=== PATIENT | male | born 1970 | race Caucasian/White ===

== ENCOUNTER 2017-11-26 07:54 | Observation (INO) | payer OTHER ==
--- OUTSIDE RECORDS SUMMARY | 2017-11-26 07:57 | XMS REPORT | Continuity of Care Document ---
:1970 Author Organization [facility] Care Team Providers Name Role Phone MD Carlos, Gerald Unavailable Unavailable Insurance Providers Payer name Policy type / Policy ID Covered green party ID Policy Mariano Coverage type AETNA - CHOICE (POS II) AETNA - CHOICE (POS II) AETNA - CHOICE (POS II) CIGNA INTERNATIONAL (PPO) AETNA - CHOICE (POS II) CIGNA INTERNATIONAL (PPO) AETNA - CHOICE (POS II) AETNA - CHOICE (POS II) AETNA - CHOICE (POS II) AETNA - CHOICE (POS II) AETNA - CHOICE (POS II) AETNA - CHOICE (POS II) AETNA - CHOICE (POS II) Encounters Encounter Performer Location Date Lab Report Gerald Gonzalez MD [facility] [place] Sep Problems Problem Effective Dates Problem Status HTN Active GERD Active HYPERCHOLESTEROLEMIA Active BIPOLAR DISORDER Active GENERALIZED ANXIETY DISORDER Active INSOMNIA Dec 03, 2012 Active Procedures Date Description Comments Dec 03, 2012 smoking status never smoker Sep 27, 2013 smoking status Never smoker Medications Medication Instructions Start Date Status PRILOSEC 40 MG CPDR Take 1 po daily Dec 03, 2012 Active LAMICTAL 200 MG TABS take 1 po daily Dec 03, 2012 Active EXFORGE 5-320 MG TABS Take 1 po daily Dec 03, 2012 Active AMBIEN 10 MG TABS 1 PO at bedtime PRN insomnia Dec 03, 2012 Active ATORVASTATIN CALCIUM 20 MG TABS 1 tablet daily Dec 03, 2012 Active Vital Signs Date Description Test Result Dec 03, 2012 weight E&M WEIGHT 300 lb Dec 03, 2012 height E&M HEIGHT 70 in Dec 03, 2012 temperature E&M TEMPERATURE 98.4 deg f Dec 03, 2012 blood pressure, systolic BP SYSTOLIC 143 mm Hg Dec 03, 2012 blood pressure, diastolic BP DIASTOLIC 65 mm Hg Dec 03, 2012 pulse rate E&M PULSE RATE 79 /min Sep 27, 2013 weight E&M WEIGHT 300.5 lb Sep 27, 2013 temperature E&M TEMPERATURE 98.4 deg f Sep 27, 2013 respiratory rate E&M RESP RATE 14 /min Sep 27, 2013 pulse rate E&M PULSE RATE 68 /min Sep 27, 2013 blood pressure, systolic BP SYSTOLIC 120 mm Hg Sep 27, 2013 blood pressure, diastolic BP DIASTOLIC 72 mm Hg Results Date Description Test Name Value Reference Interpretation Status Sep 27, hemoglobin, blood HGB 14.8 g/dL 14.0-18.0 2013Sep 27, hematocrit, blood HCT 43.4 % 42.0-54.0 2013Sep 27, platelet count PLATELETS 275 K/CMM 439-954 3115 /mm3 Sep 27, hemoglobin, blood HGB 14.8 g/dL 14.0-18.0 2013Sep 27, hematocrit, blood HCT 43.4 % 42.0-54.0 2013Sep 27, platelet count PLATELETS 275 K/CMM 984-127 1167 /mm3 Sep 27, hemoglobin, blood HGB 14.8 g/dL 14.0-18.0 2013Sep 27, hematocrit, blood HCT 43.4 % 42.0-54.0 2013Sep 27, platelet count PLATELETS 275 K/CMM 889-480 3109 /mm3 Sep 27, cholesterol, serum CHOLESTEROL 144 mg/dl <=199 2013Sep 27, triglyceride, serum, TRIGLYCERIDE 293 mg/dl <=149 High 2013 fasting Sep 27, HDL cholesterol, HDL 34 mg/dl >=61 Low 2013 serum Sep 27, sodium, serum SODIUM 140 MEQ/L [phone] mmol/L Sep 27, potassium, serum POTASSIUM 3.7 MEQ/L 3.5-5.1 2013 mmol/L Sep 27, creatinine, serum CREATININE 1.0 mg/dL 0.5-1.4 2013Sep 27, urea nitrogen, blood BUN 13 mg/dL 7-22 2013Sep 27, urea BUN/CREAT 13 null 6-25 2013 nitrogen/creatinine ratio, serum Sep 27, albumin, serum ALBUMIN 4.1 g/dL 3.5-5.0 2013Sep 27, calcium, serum CALCIUM 8.9 mg/dL 8.5-10.5 2013Sep 27, alanine SGPT (ALT) 53 U/L 0-65 2013 aminotransferase (SGPT), serum Sep 27, aspartate SGOT (AST) 33 U/L 0-37 2013 aminotransferase (SGOT), serum Sep 27, alkaline ALK PHOS 69 U/L 39-136 2013 phosphatase, serum Sep 27, thyroid stimulating TSH 0.859 0.360-3.740 2013 hormone, serum uIU/mL Sep 27, cholesterol, serum CHOLESTEROL 144 mg/dl <=199 2013Sep 27, triglyceride, serum, TRIGLYCERIDE 293 mg/dl <=149 High 2013 fasting Sep 27, HDL cholesterol, HDL 34 mg/dl >=61 Low 2013 serum Sep 27, LDL cholesterol, LDL 51 mg/dl <=99 2013Sep 27, sodium, serum SODIUM 140 MEQ/L [phone] mmol/L Sep 27, potassium, serum POTASSIUM 3.7 MEQ/L 3.5-5.1 2013 mmol/L Sep 27, creatinine, serum CREATININE 1.0 mg/dL 0.5-1.4 2013Sep 27, urea nitrogen, blood BUN 13 mg/dL 10-11Sep 27, urea BUN/CREAT 13 null -2013 nitrogen/creatinine ratio, serum Sep 27, albumin, serum ALBUMIN 4.1 g/dL 3.5-5.0 2013Sep 27, calcium, serum CALCIUM 8.9 mg/dL 8.5-10.5 2013Sep 27, alanine SGPT (ALT) 53 U/L 0-65 2013 aminotransferase (SGPT), serum Sep 27, aspartate SGOT (AST) 33 U/L 0-37 2013 aminotransferase (SGOT), serum Sep 27, alkaline ALK PHOS 69 U/L 39-136 2013 phosphatase, serum Sep 27, thyroid stimulating TSH 0.859 0.360-3.740 2013 hormone, serum uIU/mL Sep 27, cholesterol, serum CHOLESTEROL 144 mg/dl <=199 2013Sep 27, triglyceride, serum, TRIGLYCERIDE 293 mg/dl <=149 High 2013 fasting Sep 27, HDL cholesterol, HDL 34 mg/dl >=61 Low 2013Sep 27, LDL cholesterol, LDL 51 mg/dl <=99 2013Sep 27, sodium, serum SODIUM 140 MEQ/L [phone] mmol/L Sep 27, potassium, serum POTASSIUM 3.7 MEQ/L 3.5-5.1 2013 mmol/L Sep 27, creatinine, serum CREATININE 1.0 mg/dL 0.5-1.4 2013Sep 27, urea nitrogen, blood BUN 13 mg/dL 10-11Sep 27, urea BUN/CREAT 13 null 6-25 2013 nitrogen/creatinine ratio, serum Sep 27, albumin, serum ALBUMIN 4.1 g/dL 3.5-5.0 2013Sep 27, calcium, serum CALCIUM 8.9 mg/dL 8.5-10.5 2013Sep 27, alanine SGPT (ALT) 53 U/L 0-65 2013 aminotransferase (SGPT), serum Sep 27, aspartate SGOT (AST) 33 U/L 0-37 2013 aminotransferase (SGOT), serum Sep 27, alkaline ALK PHOS 69 U/L 39-136 2013 phosphatase, serum Sep 27, thyroid stimulating TSH 0.859 0.360-3.740 2013 hormone, serum uIU/mL
--- OUTSIDE RECORDS SUMMARY | 2017-11-26 07:57 | XMS REPORT | Continuity of Care Document ---
:1970 Author Organization [facility] Care Team Providers Name Role Phone MD Carlos, Gerald Unavailable Unavailable Insurance Providers Payer name Policy type / Policy ID Covered libertarian ID Policy Mariano Coverage type AETNA - [...] (POS II) Encounters Encounter Performer Location Date Office Visit Gerald Gonzalez MD [facility] [place] Sep 27, 2013 Problems Problem Effective Dates Problem Status HTN [...]
--- OUTSIDE RECORDS SUMMARY | 2017-11-26 07:57 | XMS REPORT | Continuity of Care Document ---
:1970 Author Organization Interface Problems Problem Status Onset Classification Date Comments Source Date Reported IMPAIRED GLUCOSE Active Condition 10/06/2014 TOLERANCE TEST 015 Medical Group INSOMNIA Active Condition 10/06/2014 013 Medical Group Insomnia<sup>5</sup> Active Problem 08/17/2017 Data 013 migrated Medical from [facility] on 08/19/14. HTN Active Condition 10/06/2014 Medical Group GERD Active Condition 10/06/2014 Medical Group HYPERCHOLESTEROLEMIA Active Condition 10/06/2014 Medical Group BIPOLAR DISORDER Active Condition 10/06/2014 Medical Group GENERALIZED ANXIETY Active Condition 10/06/2014 DISORDER Medical Group Benign Active Problem 08/17/2017 Data hypertension<sup>1</sup migrated Medical > from [facility] on 08/19/14. Bipolar Active Problem 08/17/2017 Data disorder<sup>2</sup> migrated Medical from [facility] on 08/19/14. Gastroesophageal reflux Active Problem 08/17/2017 Data disease<sup>3</sup> migrated Medical from [facility] on 08/19/14. Generalized anxiety Active Problem 08/17/2017 Data disorder<sup>4</sup> migrated Medical from [facility] on 08/19/14. Impaired glucose Active Problem 08/17/2017 tolerance Medical Group Morbid obesity Active Problem 08/17/2017 Medical Group Medications Medication Details Route Status Patient Ordering Order Source Instructions Provider Date pravastatin 40 40 mg=1 Active MH mg oral tablet tab, PO, 018 Medical Bedtime, # Group 90 tab, 1 Refill(s), [facility]: [id number] Omeprazole 40 40 mg=1 Active MH MG Enteric cap, PO, 018 Medical Coated Capsule Daily, # 90 Group [Prilosec] cap, 1 Refill(s), Pharmacy: [id number] Amlodipine 5 MG 1 tab, PO, Active MH / valsartan 320 Daily, # 90 018 Medical MG Oral Tablet tab, 1 Group [Exforge 5/320] Refill(s), Pharmacy: [id number] PRILOSEC 40 MG Take 1 po Active MH CPDR daily 013 Medical Group LAMICTAL 200 MG take 1 po Active MH TABS daily 013 Medical Group EXFORGE 5-320 Take 1 po Active MH MG TABS daily 013 Medical Group AMBIEN 10 MG 1 PO at Active MH TABS bedtime PRN 013 Medical insomnia Group ATORVASTATIN 1 tablet Active MH CALCIUM 20 MG daily 013 Medical TABS Group PRILOSEC 40 MG Take 1 po Active MH CPDR daily 013 Medical Group ATORVASTATIN 1 tablet Active MH CALCIUM 20 MG daily 013 Medical TABS Group AMBIEN 10 MG 1 PO at No Longer MH TABS bedtime PRN Active 013 Medical insomnia Group Allergies, Adverse Reactions, Alerts Substance Category Reaction Severity Reaction Status Date Comments Source type Reported NKDA<sup>1< Assertion Drug Active Data MH /sup> allergy 4 migrated Medical from [facility] on 05/15/15. Originally documented as NKA. Immunizations Immunization Date Given Site Status Last Updated Comments Source Results Order Name Results Value Reference Date Interpretation Comments Source Range Chemistry HGBA1C 6.0 % - 5.6 2014 Medical Group Chemistry CHOLESTEROL 142 - 199 mg/dl 2014 Medical Group Chemistry TRIGLYCERIDE 221 - 149 mg/dl 2014 Medical Group Chemistry HDL 33 >=61 10/03/ mg/dl 2014 Medical Group Chemistry LDL 65 - 99 mg/dl 2014 Medical Group Chemistry SODIUM 141 135 - 145 MEQ/L 2014 Medical mmol/L Group Chemistry POTASSIUM 3.6 3.5 - 5.1 MEQ/L 2014 Medical mmol/L Group Chemistry CREATININE 1.0 0.5 - 1.4 mg/dL 2014 Medical Group Chemistry BUN 10 7 - 22 mg/dL 2014 Medical Group Chemistry BUN/CREAT 10 6 - 25 2014 Medical Group Chemistry ALBUMIN 4.0 3.5 - 5.0 g/dL 2014 Medical Group Chemistry CALCIUM 9.1 8.5 - 10.5 mg/dL 2014 Medical Group Chemistry SGPT (ALT) 67 U/L 0 - 65 2014 Medical Group Chemistry SGOT (AST) 37 U/L 0 - 37 2014 Medical Group Chemistry ALK PHOS 83 U/L 39 - 136 2014 Medical Group Hematology HGB 14.4 14.0 - 18.0 g/dL 2014 Medical Group Hematology HCT 43.9 % 42.0 - 54.0 2014 Medical Group Hematology PLATELETS 213 133 - 450 K/CMM 2014 Medical /mm3 Group Chemistry CHOLESTEROL 144 - 199 mg/dl 2013 Medical Group Chemistry TRIGLYCERIDE 293 - 149 mg/dl 2013 Medical Group Chemistry HDL 34 >=61 mg/dl 2013 Medical Group Chemistry SODIUM 140 135 - 145 MEQ/L 2013 Medical mmol/L Group Chemistry POTASSIUM 3.7 3.5 - 5.1 MEQ/L 2013 Medical mmol/L Group Chemistry CREATININE 1.0 0.5 - 1.4 mg/dL 2013 Medical Group Chemistry BUN 13 7 - 22 mg/dL 2013 Medical Group Chemistry BUN/CREAT 13 6 - 25 2013 Medical Group Chemistry ALBUMIN 4.1 3.5 - 5.0 g/dL 2013 Medical Group Chemistry CALCIUM 8.9 8.5 - 10.5 mg/dL 2013 Medical Group Chemistry SGPT (ALT) 53 U/L 0 - 65 2013 Medical Group Chemistry SGOT (AST) 33 U/L 0 - 37 2013 Medical Group Chemistry ALK PHOS 69 U/L 39 - 136 2013 Medical Group Chemistry TSH 0.859 0.360 - uIU/mL 3.740 2013 Medical Group Chemistry CHOLESTEROL 144 - 199 mg/dl 2013 Medical Group Chemistry TRIGLYCERIDE 293 - 149 mg/dl 2013 Medical Group Chemistry HDL 34 >=61 mg/dl 2013 Medical Group Chemistry LDL 51 - 99 mg/dl 2013 Medical Group Chemistry SODIUM 140 135 - 145 MEQ/L 2013 Medical mmol/L Group Chemistry POTASSIUM 3.7 3.5 - 5.1 MEQ/L 2013 Medical mmol/L Group Chemistry CREATININE 1.0 0.5 - 1.4 mg/dL 2013 Medical Group Chemistry BUN 13 7 - 22 mg/dL 2013 Medical Group Chemistry BUN/CREAT 13 6 - 25 2013 Medical Group Chemistry ALBUMIN 4.1 3.5 - 5.0 g/dL 2013 Medical Group Chemistry CALCIUM 8.9 8.5 - 10.5 mg/dL 2013 Medical Group Chemistry SGPT (ALT) 53 U/L 0 - 65 2013 Medical Group Chemistry SGOT (AST) 33 U/L 0 - 37 2013 Medical Group Chemistry ALK PHOS 69 U/L 39 - 136 2013 Medical Group Chemistry TSH 0.859 0.360 - uIU/mL 3.740 2013 Medical Group Chemistry CHOLESTEROL 144 - 199 mg/dl 2013 Medical Group Chemistry TRIGLYCERIDE 293 - 149 mg/dl 2013 Medical Group Chemistry HDL 34 >=61 mg/dl 2013 Medical Group Chemistry LDL 51 - 99 mg/dl 2013 Medical Group Chemistry SODIUM 140 135 - 145 MEQ/L 2013 Medical mmol/L Group Chemistry POTASSIUM 3.7 3.5 - 5.1 MEQ/L 2013 Medical mmol/L Group Chemistry CREATININE 1.0 0.5 - 1.4 mg/dL 2013 Medical Group Chemistry BUN 13 7 - 22 mg/dL 2013 Medical Group Chemistry BUN/CREAT 13 6 - 25 2013 Medical Group Chemistry ALBUMIN 4.1 3.5 - 5.0 g/dL 2013 Medical Group Chemistry CALCIUM 8.9 8.5 - 10.5 mg/dL 2013 Medical Group Chemistry SGPT (ALT) 53 U/L 0 - 65 2013 Medical Group Chemistry SGOT (AST) 33 U/L 0 - 37 2013 Medical Group Chemistry ALK PHOS 69 U/L 39 - 136 2013 Medical Group Chemistry TSH 0.859 0.360 - uIU/mL 3.740 2013 Medical Group Chemistry CHOLESTEROL 144 - 199 mg/dl 2013 Medical Group Chemistry TRIGLYCERIDE 293 - 149 mg/dl 2013 Medical Group Chemistry HDL 34 >=61 mg/dl 2013 Medical Group Hematology HGB 14.8 14.0 - 18.0 g/dL 2013 Medical Group Hematology HCT 43.4 % 42.0 - 54.0 2013 Medical Group Hematology PLATELETS 275 133 - 450 [facility] 2013 Medical /mm3 Group Hematology HGB 14.8 14.0 - 18.0 g/dL 2013 Medical Group Hematology HCT 43.4 % 42.0 - 54.0 2013 Medical Group Hematology PLATELETS 275 133 - 450 [facility] 2013 Medical /mm3 Group Hematology HGB 14.8 14.0 - 18.0 g/dL 2013 Medical Group Hematology HCT 43.4 % 42.0 - 54.0 2013 Medical Group Hematology PLATELETS 275 133 - 450 [facility] 2013 Medical /mm3 Group Vital Signs Vital Sign Value Date Comments Source BMI Calculated 44.66 05/11/2017 Medical Group Weight 137.182 05/11/2017 Medical Group Height 175.26 cm 05/11/2017 Medical Group Heart Rate 76 05/11/2017 Medical Group Temperature Oral (F) 97.9 F 05/11/2017 Medical Group Systolic (mm Hg) 112 05/11/2017 Medical Group Diastolic (mm Hg) 80 05/11/2017 Medical Group Height 70 10/06/2014 Medical Group Weight 306 10/06/2014 Medical Group Height 70 10/03/2014 Medical Group Weight 306 10/03/2014 Medical Group Temperature Oral (F) 97.6 F 10/03/2014 Medical Group Respitory Rate 16 10/03/2014 Medical Group Heart Rate 80 10/03/2014 Medical Group Systolic (mm Hg) 122 10/03/2014 Medical Group Diastolic (mm Hg) 68 10/03/2014 Medical Group Weight 300.5 09/27/2013 Medical Group Temperature Oral (F) 98.4 F 09/27/2013 Medical Group Respitory Rate 14 09/27/2013 Medical Group Heart Rate 68 09/27/2013 Medical Group Systolic (mm Hg) 120 09/27/2013 Medical Group Diastolic (mm Hg) 72 09/27/2013 Medical Group Weight 300 12/03/2012 Medical Group Height 70 12/03/2012 Medical Group Temperature Oral (F) 98.4 F 12/03/2012 Medical Group Systolic (mm Hg) 143 12/03/2012 Medical Group Diastolic (mm Hg) 65 12/03/2012 Medical Group Heart Rate 79 12/03/2012 Medical Group Encounters Location Location Encounter Encounter Reason Attending ADM DC Status Source Details Type Number For Provider Date Date Visit [facility] [id number] Gerald 09/27 09/27 [place] Visit 020 k, /2013 Medical Medical MD Group Group [facility] Lab Report [id number] Gerald 09/27 09/27 [facility] [address], /2013 Medical Medical MD Group Group [facility] Office [id number] Gerald 10/03 10/03 formerly [facility] Visit 980 k, /2014 Medical Medical MD Group Group [facility] Lab Report [id number] Gerald 10/03 10/03 [facility] [address], Medical Medical MD Group Group [facility] Lab Report [id number] Gerald 10/06 10/06 [facility] [address], /2014 Medical Medical MD Group Group [place] Outpatient [id number] GERALD 10/06 [facility] [place] Outpatient [id number] GERALD 05/27 [facility] Outpatient [id number] GERALD 06/02 [facility] Outside [id number] 04/30 05/02 Primary Medical /2017 [facility] [place] Out[facility] [id number] GERALD 05/11 [facility] [place] [facility] Outpatient [id number] Gerald 05/11 05/12 Primary /2017 Medical Care Group [facility] Outside [id number] 07/03 07/05 Primary Medical /2017 [facility] [place] Outpatient [id number] GERALD 10/29 [facility] [place] Procedures Procedure Code Date Perfomer Comments Source Colonoscopy [id number] 06/26/2017 Medical Group Colonoscopy [id number] 04/21/2017 Medical Group Adenoidectomy [id number] Medical Group Bilateral tubal [id number] Medical ligation Group Excision of basal [id number] Medical cell carcinoma Group Excision of [id number] Medical melanoma Group
--- OUTSIDE RECORDS SUMMARY | 2017-11-26 07:58 | XMS REPORT | Continuity of Care Document ---
:1970 Author Organization [facility] Care Team Providers Name Role Phone MD Carlos, Gerald Unavailable Unavailable Insurance Providers Payer name Policy type / Policy ID Covered constitution party ID Policy Mariano Coverage type AETNA [...] Location Date Lab Report Gerald Gonzalez MD [facility] [place] Sep Problems Problem Effective Dates Problem Status HTN Active GERD Active HYPERCHOLESTEROLEMIA Active BIPOLAR DISORDER Active GENERALIZED ANXIETY DISORDER Active INSOMNIA Dec 03, 2012 Active IMPAIRED GLUCOSE TOLERANCE TEST (ORAL) Oct 06, 2014 Active Procedures Date Description Comments Dec 03, 2012 smoking status never smoker Sep 27, 2013 smoking status Never smoker Oct 03, 2014 smoking status Never smoker Medications Medication Instructions Start Date Status PRILOSEC 40 MG CPDR Take 1 po daily Dec 03, 2012 Active LAMICTAL 200 MG TABS take 1 po daily Dec 03, 2012 Active EXFORGE 5-320 MG TABS Take 1 po daily Dec 03, 2012 Active ATORVASTATIN CALCIUM 20 MG TABS 1 tablet daily Dec 03, 2012 Active AMBIEN 10 MG TABS 1 PO at bedtime PRN insomnia Dec 03, 2012 Inactive Vital Signs Date Description Test Result Dec 03, 2012 weight E&M - 3141-9 WEIGHT 300 lb Dec 03, 2012 height E&M - 8302-2 HEIGHT 70 in Dec 03, 2012 temperature E&M TEMPERATURE 98.4 deg f Dec 03, 2012 blood pressure, systolic - 8480-6 BP SYSTOLIC 143 mm Hg Dec 03, 2012 blood pressure, diastolic - 8462-4 BP DIASTOLIC 65 mm Hg Dec 03, 2012 pulse rate E&M - 8867-4 PULSE RATE 79 /min Sep 27, 2013 weight E&M - 3141-9 WEIGHT 300.5 lb Sep 27, 2013 temperature E&M TEMPERATURE 98.4 deg f Sep 27, 2013 respiratory rate E&M - 9279-1 RESP RATE 14 /min Sep 27, 2013 pulse rate E&M - 8867-4 PULSE RATE 68 /min Sep 27, 2013 blood pressure, systolic - 8480-6 BP SYSTOLIC 120 mm Hg Sep 27, 2013 blood pressure, diastolic - 8462-4 BP DIASTOLIC 72 mm Hg Oct 03, 2014 height E&M - 8302-2 HEIGHT 70 in Oct 03, 2014 weight E&M - 3141-9 WEIGHT 306 lb Oct 03, 2014 temperature E&M TEMPERATURE 97.6 deg f Oct 03, 2014 respiratory rate E&M - 9279-1 RESP RATE 16 /min Oct 03, 2014 pulse rate E&M - 8867-4 PULSE RATE 80 /min Oct 03, 2014 blood pressure, systolic - 8480-6 BP SYSTOLIC 122 mm Hg Oct 03, 2014 blood pressure, diastolic - 8462-4 BP DIASTOLIC 68 mm Hg Oct 06, 2014 height E&M - 8302-2 HEIGHT 70 in Oct 06, 2014 weight E&M - 3141-9 WEIGHT 306 lb Results Date Description Test Name Value Reference Interpretation Status Sep 27, hemoglobin, blood HGB 14.8 g/dL 14.0-18.0 2013Sep 27, hematocrit, blood HCT 43.4 % 42.0-54.0 2013Sep 27, platelet count PLATELETS 275 K/CMM 239-866 8100 /mm3 Sep 27, hemoglobin, blood HGB 14.8 g/dL 14.0-18.0 2013Sep 27, hematocrit, blood HCT 43.4 % 42.0-54.0 2013Sep 27, platelet count PLATELETS 275 K/CMM 143-028 3620 /mm3 Sep 27, hemoglobin, blood HGB 14.8 g/dL 14.0-18.0 2013Sep 27, hematocrit, blood HCT 43.4 % 42.0-54.0 2013Sep 27, platelet count PLATELETS 275 K/CMM 174-596 8014 /mm3 Oct 03, hemoglobin, blood HGB 14.4 g/dL 14.0-18.0 2014Oct 03, hematocrit, blood HCT 43.9 % 42.0-54.0 2014Oct 03, platelet count PLATELETS 213 K/CMM 793-925 7577 /mm3 Sep 27, cholesterol, serum CHOLESTEROL 144 mg/dl <=199 2013Sep 27, triglyceride, serum, TRIGLYCERIDE 293 mg/dl <=149 High 2013 fasting Sep 27, HDL cholesterol, HDL 34 mg/dl >=61 Low 2013Sep 27, sodium, serum SODIUM 140 MEQ/L [phone] mmol/L Sep 27, potassium, serum POTASSIUM 3.7 [...] 2013Sep 27, sodium, serum SODIUM 140 MEQ/L [phone] mmol/L Sep 27, potassium, serum POTASSIUM 3.7 MEQ/L 3.5-5.1 2013 mmol/L Sep 27, creatinine, serum CREATININE 1.0 mg/dL 0.5-1.4 2013Sep 27, urea nitrogen, blood BUN 13 mg/dL 10-11Sep 27, urea BUN/CREAT 13 null 6-2013 nitrogen/creatinine ratio, serum Sep 27, albumin, serum [...] 27, LDL cholesterol, LDL 51 mg/dl <=99 2013 serum Sep 27, sodium, serum SODIUM 140 MEQ/L [phone] mmol/L Sep 27, potassium, serum POTASSIUM 3.7 [...] TSH 0.859 0.360-3.740 2013 hormone, serum uIU/mL Oct 03, cholesterol, serum CHOLESTEROL 142 mg/dl <=199 2014Oct 03, triglyceride, serum, TRIGLYCERIDE 221 mg/dl <=149 High 2014 fasting Oct 03, HDL cholesterol, HDL 33 mg/dl >=61 Low 2014 serum Oct 03, LDL cholesterol, LDL 65 mg/dl <=99 2014 serum Oct 03, sodium, serum SODIUM 141 MEQ/L 072-521 7214 mmol/L Oct 03, potassium, serum POTASSIUM 3.6 MEQ/L 3.5-5.1 2014 mmol/L Oct 03, creatinine, serum CREATININE 1.0 mg/dL 0.5-1.4 2014Oct 03, urea nitrogen, blood BUN 10 mg/dL 7-22 2014Oct 03, urea BUN/CREAT 10 null 6-25 2014 nitrogen/creatinine ratio, serum Oct 03, albumin, serum ALBUMIN 4.0 g/dL 3.5-5.0 2014Oct 03, calcium, serum CALCIUM 9.1 mg/dL 8.5-10.5 2014Oct 03, alanine SGPT (ALT) 67 U/L 0-65 High 2014 aminotransferase (SGPT), serum Oct 03, aspartate SGOT (AST) 37 U/L 0-37 2014 aminotransferase (SGOT), serum Oct 03, alkaline ALK PHOS 83 U/L 39-136 2014 phosphatase, serum Oct 06, hemoglobin A1C, HGBA1C 6.0 % <=5.6 High 2015 blood, as % of total hemoglobin
--- OUTSIDE RECORDS SUMMARY | 2017-11-26 07:58 | XMS REPORT | Continuity of Care Document ---
:1970 Author Organization [facility] Care Team Providers Name Role Phone MD Carlos, Gerald Unavailable Unavailable Insurance Providers Payer name Policy type / Policy ID Covered republican ID Policy Mairano Coverage type AETNA - CHOICE (POS II) [...] INTERNATIONAL (PPO) AETNA - CHOICE (POS II) Encounters Encounter Performer Location Date Office Visit Gerald Gonzalez MD [facility] Oct 03, 2014 Problems Problem Effective Dates Problem Status HTN [...] - 8462-4 BP DIASTOLIC 68 mm Hg Results Date Description Test Name Value Reference Interpretation Status Sep 27, hemoglobin, blood HGB 14.8 g/dL 14.0-18.0 2013Sep 27, hematocrit, blood HCT 43.4 % 42.0-54.0 2013Sep 27, platelet count PLATELETS 275 K/CMM [phone] /mm3 Sep 27, hemoglobin, blood HGB 14.8 g/dL 14.0-18.0 2013Sep 27, hematocrit, blood HCT 43.4 % 42.0-54.0 2013Sep 27, platelet count PLATELETS 275 K/CMM 255-103 2579 /mm3 Sep 27, hemoglobin, blood HGB 14.8 g/dL 14.0-18.0 2013Sep 27, hematocrit, blood HCT 43.4 % 42.0-54.0 2013Sep 27, platelet count PLATELETS 275 K/CMM 954-949 0690 /mm3 Oct 03, hemoglobin, blood HGB 14.4 g/dL 14.0-18.0 2014Oct 03, hematocrit, blood HCT 43.9 % 42.0-54.0 2014Oct 03, platelet count PLATELETS 213 K/CMM 082-633 8917 /mm3 Sep 27, cholesterol, serum CHOLESTEROL 144 mg/dl <=199 2013Sep 27, triglyceride, serum, TRIGLYCERIDE 293 mg/dl <=149 High 2013 fasting Sep 27, HDL cholesterol, HDL 34 mg/dl >=61 Low 2013Sep 27, sodium, serum SODIUM 140 MEQ/L [phone] mmol/L Sep 27, potassium, serum POTASSIUM 3.7 [...] Sep 27, thyroid stimulating TSH 0.859 0.360-3.740 2014 hormone, serum uIU/mL Sep 27, cholesterol, serum CHOLESTEROL 144 mg/dl <=199 2013Sep 27, triglyceride, serum, TRIGLYCERIDE 293 mg/dl <=149 High 2013 fasting Sep 27, HDL cholesterol, HDL 34 mg/dl >=61 Low 2013Sep 27, LDL cholesterol, LDL 51 mg/dl <=99 2013Sep 27, sodium, serum SODIUM 140 MEQ/L [phone] mmol/L Sep 27, potassium, serum POTASSIUM 3.7 [...] 2013Sep 27, sodium, serum SODIUM 140 MEQ/L 721-099 1733 mmol/L Sep 27, potassium, serum POTASSIUM 3.7 [...] Oct 03, sodium, serum SODIUM 141 MEQ/L 089-062 7526 mmol/L Oct 03, potassium, serum POTASSIUM 3.6 [...]
--- OUTSIDE RECORDS SUMMARY | 2017-11-26 07:58 | XMS REPORT | Continuity of Care Document ---
:1970 Author Organization [facility] Care Team Providers Name Role Phone [...] Location Date Lab Report Gerald Gonzalez MD [facility] [place] Sep Problems Problem Effective Dates Problem Status [...] 2013Sep 27, platelet count PLATELETS 275 K/CMM [phone] /mm3 Sep 27, hemoglobin, blood HGB 14.8 g/dL 14.0-18.0 2013Sep 27, hematocrit, blood HCT 43.4 % 42.0-54.0 2013Sep 27, platelet count PLATELETS 275 K/CMM [phone] /mm3 Sep 27, hemoglobin, blood HGB 14.8 g/dL 14.0-18.0 2013Sep 27, hematocrit, blood HCT 43.4 % 42.0-54.0 2013Sep 27, platelet count PLATELETS 275 K/CMM 387-186 5491 /mm3 Oct 03, hemoglobin, blood HGB 14.4 g/dL 14.0-18.0 2014Oct 03, hematocrit, blood HCT 43.9 % 42.0-54.0 2014Oct 03, platelet count PLATELETS 213 K/CMM 268-747 5019 /mm3 Sep 27, cholesterol, serum CHOLESTEROL 144 mg/dl <=199 2013Sep 27, triglyceride, serum, TRIGLYCERIDE 293 mg/dl <=149 High 2013 fasting Sep 27, HDL cholesterol, HDL 34 mg/dl >=61 Low 2013Sep 27, sodium, serum SODIUM 140 MEQ/L [phone] mmol/L Sep 27, potassium, serum POTASSIUM 3.7 [...] 2013Sep 27, sodium, serum SODIUM 140 MEQ/L [phone] mmol/L Sep 27, potassium, serum POTASSIUM 3.7 [...] 2013Sep 27, sodium, serum SODIUM 140 MEQ/L [phone] mmol/L Sep 27, potassium, serum POTASSIUM 3.7 [...] Oct 03, sodium, serum SODIUM 141 MEQ/L [phone] mmol/L Oct 03, potassium, serum POTASSIUM 3.6 [...]
--- OUTSIDE RECORDS SUMMARY | 2017-11-26 07:58 | XMS REPORT | Summary of Care ---
:1970 Author Organization [facility] [place] Address [address] [place] [address]- Encounter HQ Rhiannon_maría elena(FIN) [phone] Date(s): 07/03/17 - 07/04/17 [facility] [place] [address] [place] [address] [phone] Vital Signs No data available for this section Problem List Condition Effective Dates Status Health Status Informant Benign hypertension1 Active Bipolar disorder2 Active Gastroesophageal reflux disease3 Active Generalized anxiety disorder4 Active Impaired glucose tolerance(Confirmed) Active Insomnia5 12/03/12 Active Morbid obesity(Confirmed) Active 1Data migrated from [employer] on 08/19/14.2Data migrated from [employer] on 08/19/14.3Data migrated from [employer] on 08/19/14.4Data migrated from [employer] on 08/19/14.5Data migrated from [employer] on 08/19/14. Allergies, Adverse Reactions, Alerts Substance Reaction Severity Status NKDA1 Active 1Data migrated from [employer] on 05/15/15. Originally documented as NKA. Medications No data available for this section Results No data available for this section Immunizations No data available for this section Procedures Procedure Date Related Diagnosis Body Site Status Colonoscopy 06/26/17 Completed Colonoscopy 04/21/17 Completed Adenoidectomy Completed Bilateral tubal ligation Completed Excision of basal cell carcinoma Completed Excision of melanoma Completed Social History Social History Type Response Substance Abuse Use: None. Employment/School Status: Employed. 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 Alcohol Current, Type Beer. Frequency: 1-2 times per month. Smoking Status Never smoker; Exposure to Tobacco Smoke None; Cigarette Smoking Last 365 Days No; Reg Smoking Cessation Counseling No entered on: 05/11/17 Assessment and Plan No data available for this section
--- OUTSIDE RECORDS SUMMARY | 2017-11-26 07:58 | XMS REPORT | Summary of Care ---
:1970 Author Organization [facility] [place] Address [address] [place] [address]- Encounter HQ Annamariar_maría elena(FIN) [phone] Date(s): 04/30/17 - 05/01/17 [facility] [place] [address] [place] [phone] Vital Signs No data available for this [...] Use: None. Employment/School Status: Employed. 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 Alcohol Current, Type Beer. Frequency: 1-2 times per month. Smoking Status Never smoker; Exposure to Tobacco Smoke None; Cigarette Smoking Last 365 Days No; Reg Smoking Cessation Counseling No entered on: 05/11/17 Assessment and Plan No data available for this section
--- OUTSIDE RECORDS SUMMARY | 2017-11-26 07:58 | XMS REPORT | Summary of Care ---
:1970 Author Organization [facility] [place] Address [address] [place] [address]- Encounter HQ Rhiannon_maría elena(FIN) [phone] Date(s): 05/11/17 - 05/11/17 [facility] [place] [address] [place] [phone] Discharge Disposition: Home or Self Care Attending Physician: Gerald Gonzalez MD Vital Signs Most recent to oldest [Reference Range]: 1 Height 175.26 cm (05/11/17 3:29 PM) Temperature Oral [96.4-99.1 DegF] 97.9 DegF (05/11/17 3:29 PM) Blood Pressure [90-140/60-90 mmHg] 112/80 mmHg (05/11/17 3:29 PM) Peripheral Pulse Rate [60-100 bpm] 76 bpm (05/11/17 3:29 PM) Weight 137.182 kg (05/11/17 3:29 PM) Body Mass Index 44.66 m2 (05/11/17 3:29 PM) Problem List Condition Effective Dates Status Health [...] on 05/15/15. Originally documented as NKA. Medications Exforge 5 mg-320 mg oral tablet 1 tab, PO, Daily, # 90 tab, 1 Refill(s), [id number] Start Date: 05/11/17 Status: Orderedpravastatin 40 mg oral tablet 40 mg=1 tab, PO, Bedtime, # 90 tab, 1 Refill(s), [id number] Start Date: 05/11/17 Status: OrderedPrilosec 40 mg oral delayed release capsule 40 mg=1 cap, PO, Daily, # 90 cap, 1 Refill(s), [id number] Start Date: 05/11/17 Status: Ordered Results No data available for this section Immunizations No data available for this section Procedures Procedure Date Related Diagnosis Body Site Status Colonoscopy 06/26/17 Completed Colonoscopy 04/21/17 Completed Adenoidectomy Completed Bilateral tubal ligation Completed Excision of basal cell carcinoma Completed Excision of melanoma Completed Social History Social History Type Response Substance Abuse Use: None. Employment/School Status: Employed. 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 Alcohol Current, Type Beer. Frequency: 1-2 times per month. Smoking Status Never smoker; Exposure to Tobacco Smoke None; Cigarette Smoking Last 365 Days No; Reg Smoking Cessation Counseling No entered on: 05/11/17 Assessment and Plan No data available for this section
[2017-11-26 09:29] LABS: Absolute Lymphocytes (CBC) 2.3 K/uL (0.7-4.9); Absolute Monocytes 0.8 K/uL (0.1-1.3); Absolute Neutrophil 6.8 K/uL (1.8-8.0); Basophils % 0.3 % (0-1.3); Eosinophils % 4.1 % (0-4.4); Hematocrit 39.1 % (39.6-49.0); MCH 28.2 pg (27.0-35.0); MCV 82.5 fL (80-100); MPV 7.1 fL (7.6-11.3); Monocytes % 7.4 % (3.3-12.3); RBC Red Blood Cell Count 4.74 M/uL (4.33-5.43)
--- NOTE | 2017-11-26 09:44 | RAD REPORT ---
EXAM DESCRIPTION: RAD - Elbow Right 2 View - 11/26/2017 9:22 am CLINICAL HISTORY: Pain;Swelling COMPARISON: No comparisons FINDINGS: Soft tissue swelling is seen along the olecranon suggesting infection. Small olecranon spu r is present. No fracture or dislocation. No radiographic evidence of osteomyelitis.
--- NOTE | 2017-11-26 09:45 | RAD REPORT ---
EXAM DESCRIPTION: US - Extremity Nonvascular Complete - 11/26/2017 9:10 am CLINICAL HISTORY: right elbow pain swelling COMPARISON: No comparisons TECHNIQUE: Real-time sonographic evaluation of the area of interest was performed. FINDINGS: An oblong fluid collection is seen along the elbow in the area of interest measuring 2.5 x 0.4 x 1.5 cm. This may be related to abscess or bursal fluid collection.
[2017-11-26 09:46] LABS: BUN Blood Urea Nitrogen 9 mg/dL (7-18); Bicarbonate 30 mmol/L (21-32); Glucose Level 129 mg/dL (74-106); Potassium 3.7 mmol/L (3.5-5.1); Sodium Level 143 mmol/L (136-145)
[2017-11-26] MEDS ORDERED: VANCOMYCIN 1.5 GM in NA CHLORIDE 0.9% 500 ML IVPB ONE (10:45)
--- NOTE | 2017-11-26 13:42 | EDPHYS ---
Physician Documentation [facility] Name: Surjit Marin Age: 47 yrs Sex: Male : 1970 Arrival Date: 11/26/2017 Time: 07:59 Bed 4 Private MD: Out, [facility] ED Physician Perez Taveras HPI: 11/26 08:44 This 47 yrs old Male presents to ER via Ambulatory with complaints of Arm kdr Pain, Arm Swelling. 08:44 The patient or guardian complains of decreased range of motion, pain, that is acute, kdr swelling, tenderness. The complaints affect the right elbow. Context: The problem was sustained at home, resulted from unknown cause. Onset: The symptoms/episode began/occurred gradually, 3 day(s) ago. Treatment prior to arrival includes: no previous treatment. Modifying factors: The symptoms are alleviated by remaining still, the symptoms are aggravated by movement, bending arm. Associated signs and symptoms: Pertinent positives: decreased range of motion, erythema, pain, swelling, warmth, of the right elbow. Severity of symptoms: At their worst the symptoms were mild, moderate, just prior to arrival, in the emergency department the symptoms are unchanged. The patient has experienced a previous episode, approximately 10 years ago, Had a bone spur that became infected requiring abx. Historical: - Allergies: 08:05 No Known Allergies; aa5 - PMHx: 08:05 Hypertension; GERD; Thyroid problem; aa5 - PSHx: 08:05 skin CA removed; aa5 - Immunization history:: Adult Immunizations unknown. - Ebola Screening: : No symptoms or risks identified at this time. - Social history:: Smoking status: unknown. ROS: 08:44 Constitutional: Negative for fever, chills, and weight loss, Eyes: Negative for injury, kdr pain, redness, and discharge, ENT: Negative for injury, pain, and discharge, Neck: Negative for injury, pain, and swelling, Cardiovascular: Negative for chest pain, palpitations, and edema, Respiratory: Negative for shortness of breath, cough, wheezing, and pleuritic chest pain, Abdomen/GI: Negative for abdominal pain, nausea, vomiting, diarrhea, and constipation, Back: Negative for injury and pain, : Negative for injury, bleeding, discharge, and swelling, Skin: Negative for injury, rash, and discoloration, Neuro: Negative for headache, weakness, numbness, tingling, and seizure activity. Psych: Negative for depression, anxiety, suicide ideation, homicidal ideation, and hallucinations, Allergy/Immunology: Negative for hives, rash, and allergies, Endocrine: Negative for neck swelling, polydipsia, polyuria, polyphagia, and marked weight changes, Hematologic/Lymphatic: Negative for swollen nodes, abnormal bleeding, and unusual bruising. 08:44 MS/extremity: Positive for decreased range of motion, pain, swelling, tenderness, warmth, of the right elbow. Exam: 08:44 Constitutional: This is a well developed, well nourished patient who is awake, alert, kdr and in no acute distress. Head/Face: Normocephalic, atraumatic. Eyes: Pupils equal round and reactive to light, extra-ocular motions intact. Lids and lashes normal. Conjunctiva and sclera are non-icteric and not injected. Cornea within normal limits. Periorbital areas with no swelling, redness, or edema. Neck: Trachea midline, no thyromegaly or masses palpated, and no cervical lymphadenopathy. Supple, full range of motion without nuchal rigidity, or vertebral point tenderness. No Meningismus. 08:44 Musculoskeletal/extremity: Extremities: grossly normal except: decreased ROM, erythema, pain, swelling, tenderness, ROM: limited active range of motion, limited passive range of motion, Pulses: are normal with no appreciated deficits, Sensation intact. Vital Signs: 08:05 BP 140 / 74; Pulse 87; Resp 20 S; Temp 99.6(TE); Pulse Ox 96% on R/A; Weight 136.08 kg aa5 (R); Height 5 ft. 9 in. (175.26 cm) (R); Pain 2/10; 09:50 BP 115 / 49; Pulse 84; Resp 18; Pulse Ox 99% on R/A; tw2 10:26 BP 122 / 60; Pulse 82; Resp 16 S; Pulse Ox 99% on R/A; jl7 14:33 BP 124 / 62; Pulse 79; Resp 17; Temp 99.4; Pulse Ox 99% on R/A; sg 08:05 Body Mass Index 44.30 (136.08 kg, 175.26 cm) aa5 MDM: 08:44 Data reviewed: vital signs, nurses notes, lab test result(s), radiologic studies. kdr Counseling: I had a detailed discussion with the patient and/or guardian regarding: the historical points, exam findings, and any diagnostic results supporting the discharge/admit diagnosis, lab results, radiology results. 13:41 Patient medically screened. kdr 11/26 08:44 Order name: CBC with Diff; Complete Time: 10:05 kdr 11/26 08:44 Order name: Chem 7; Complete Time: 10:05 kdr 11/26 08:44 Order name: Blood Culture Adult (2) kdr 11/26 09:08 Order name: Extremity Nonvascular Complete; Complete Time: 10:05 EDMS 11/26 09:20 Order name: Elbow Right 2 View; Complete Time: 10:05 EDMS Administered Medications: 10:50 Drug: vancoMYCIN 1.5 grams Route: IVPB; Rate: calculated rate; Site: left antecubital; jl7 12:50 Follow up: Response: No adverse reaction; IV Status: Completed infusion jl7 Disposition: 11/26/17 13:41 Hospitalization ordered by Xenia Mota for Observation. Preliminary diagnosis is Left elbow infection. - Bed requested for Telemetry/MedSurg (observation). - Status is Observation. bd - Condition is Fair. - Problem is new. - Symptoms have improved. UTI on Admission? No Signatures: Dispatcher [employer] EDDE Sherri Cardona Kevin, MD MD [facility] Raquel Armenta, RN RN aa5 Adrienne Menezes RN RN jl7 Corrections: (The following items were deleted from the chart) 09:08 08:44 Extrmty Nonvasular Limited+US.RAD.BRZ ordered. EDDE EDMS 09:20 08:45 Elbow Right 3 View+RAD.RAD.BRZ ordered. EDDE EDMS 14:24 13:41 Hospitalization Ordered by Xenia Mota MD for Observation. Preliminary bd diagnosis is Left elbow infection. Bed requested for Telemetry/MedSurg (observation). Status is Observation. Condition is Fair. Problem is new. Symptoms have improved. UTI on Admission? No. kdr 14:42 14:24 11/26/2017 13:41 Hospitalization Ordered by Xneia Mota MD for Observation. bd Preliminary diagnosis is Left elbow infection. Bed requested for Telemetry/MedSurg (observation). Status is Observation. Condition is Fair. Problem is new. Symptoms have improved. UTI on Admission? No. bd
--- NOTE | 2017-11-26 13:42 | P.HP ---
Certification for Inpatient Patient admitted to: Observation With expected LOS: >2 Midnights Patient will require the following post-hospital care: None Practitioner: I am a practitioner with admitting privileges, knowledge of patient current condition, hospital course, and medical plan of care. Services: Services provided to patient in accordance with Admission requirements found in Title 42 Section 412.3 of the Code of Federal Regulations Patient History Date of Service: 11/26/17 Primary Care Provider: Dr Ramirez Reason for admission: Elbow swell History of Present Illness: This is a 47-year-old male with significant past medical history of hypertension and hyperthyroidism recently diagnosed who presented to the ED complaining of having some elbow swelling. Patient stated that his right elbow study getting swollen for past 2-3 days and has got progressively worse. Patient stated that initially was able to move his elbow joint however now he is not able to move his elbow joint and has been having some throbbing pain. Pain is 8/10 in nature. This radiated down to his arm and he is unable to have a strong tso at this time as well. Patient stated that he had similar episode happened to him in the past 12 years ago where he was given some steroids along with antibiotics for about 30 days and he had resolution of his symptoms at this time. In the ER patient had a elbow ultrasound done which was consistent with bursitis versus abscess and patient was thus referred over to admission for further [facility] medications list reviewed: Yes - Past Medical/Surgical History Has patient received pneumonia vaccine in the past: No Diabetic: No -: Hypertension -: Hyperthyroidism Past Surgical History: Reviewed- Non-Contributory - Family History Family History: Reviewed- Non-Contributory - Social History Smoking Status: Never smoker Counseled patient to stop smoking for: less than 10 minutes Smoking therapy provided: No Patient receptive to therapy: No Alcohol use: No CD- Drugs: No Caffeine use: No Place of Residence: Home Review of Systems 10-point ROS is otherwise unremarkable Physical Examination - Physical Exam General: Alert, In no apparent distress HEENT: Atraumatic, PERRLA, Mucous membr. moist/pink, EOMI, Sclerae nonicteric Neck: Supple, 2+ carotid pulse no bruit, No LAD, Without JVD or thyroid abnormality Respiratory: Clear to auscultation bilaterally, Normal air movement Cardiovascular: Regular rate/rhythm, Normal S1 S2 Gastrointestinal: Normal bowel sounds, No tenderness Musculoskeletal: Swelling (On the right elbow. Decreased Range of motion to the joint as well ), Erythema, Tenderness, Warmth Integumentary: No rashes Neurological: Normal gait, Normal speech, Normal strength at 5/5 x4 extr, Normal tone, Normal affect Lymphatics: No axilla or inguinal lymphadenopathy - Studies Laboratory Data (last 24 hrs) 11/26/17 09:00: Sodium 143, Potassium 3.7, BUN 9, Creatinine 0.90, Glucose 129 H 11/26/17 09:00: WBC 10.3, Hgb 13.4 L, Hct 39.1 L, Plt Count 304 Assessment and Plan - Problems (Diagnosis) (1) Elbow swelling Current Visit: Yes Status: Acute Plan: Right elbow swelling. Ultrasound of the elbow consistent with bursitis versus abscess. -started on IV vanc and Zosyn at this time. -orthopedic consult for possible aspiration at this time as well. -will await the elbow I sit to help with the swelling. -no NSAIDs as patient does have a history of gastric ulcers. Qualifiers: Laterality: right Qualified Code(s): M25.421 - Effusion, right elbow (2) HTN (hypertension) Current Visit: Yes Status: Chronic Plan: Will restart home medication at this time (3) Hyperthyroidism Current Visit: Yes Status: Chronic Plan: Will restart home medication at this time Discharge Plan: Home Plan to discharge in: 48 Hours - Advance Directives Does patient have a Living Will: No Does patient have a Durable POA for Healthcare: No - Code Status/Comfort Care Code Status Assessed: Yes Critical Care: No
--- NOTE | 2017-11-26 13:42 | ER ---
Nurse's Notes [facility] Name: Surjit Marin Age: 47 yrs Sex: Male : 1970 Arrival Date: 11/26/2017 Time: 07:59 Bed 4 Private MD: Out, [facility] Diagnosis: Left elbow infection Presentation: 11/26 08:04 Presenting complaint: Patient states: right arm pain that began 3 days ago. Pt states aa5 "the pain is so bad now that I can barely move my arm". Pt states "the same thing happened many years ago and they said I had a bone spur that got infected". 08:04 Transition of care: patient was not received from another setting of care. Onset of aa5 symptoms was November 2017. Risk Assessment: Do you want to hurt yourself or someone else? Patient reports no desire to harm self or others. Initial Sepsis Screen: Does the patient meet any 2 criteria? No. Patient's initial sepsis screen is negative. Does the patient have a suspected source of infection? No. Patient's initial sepsis screen is negative. Care prior to arrival: None. 08:04 Method Of Arrival: Ambulatory aa5 08:04 Acuity: JAYNE 3 aa5 Historical: - Allergies: 08:05 No Known Allergies; aa5 - PMHx: 08:05 Hypertension; GERD; Thyroid problem; aa5 - PSHx: 08:05 skin CA removed; aa5 - Immunization history:: Adult Immunizations unknown. - Ebola Screening: : No symptoms or risks identified at this time. - Social history:: Smoking status: unknown. Screenin:15 Abuse screen: Denies threats or abuse. Denies injuries from another. Nutritional jl7 screening: No deficits noted. Tuberculosis screening: No symptoms or risk factors identified. Fall Risk None identified. Assessment: 08:15 General: Appears in no apparent distress. uncomfortable, Behavior is calm, cooperative, jl7 appropriate for age. Pain: Complains of pain in right elbow Pain radiates to right tricep and palmar aspect of right forearm Pain currently is 2 out of 10 on a pain scale. at worst was 10 out of 10 on a pain scale. Quality of pain is described as sharp, Pain began 2-3 days ago. Is continuous, Alleviated by rest, Aggravated by repositioning, touching. Neuro: Level of Consciousness is awake, alert, obeys commands. Cardiovascular: Heart tones S1 S2 present Patient's skin is warm and dry. Respiratory: Airway is patent Respiratory effort is even, unlabored, Respiratory pattern is regular, symmetrical, Breath sounds are clear bilaterally. GI: No signs and/or symptoms were reported involving the gastrointestinal system. : No signs and/or symptoms were reported regarding the genitourinary system. EENT: No signs and/or symptoms were reported regarding the EENT system. Derm: Skin is pink, warm \\T\\ dry. Musculoskeletal: Capillary refill < 3 seconds, in bilateral fingers. Range of motion: intact in right shoulder and right wrist limited in right elbow Swelling present in right elbow Tenderness present in right elbow warmth palpated to right elbow. 09:15 Reassessment: Patient and/or family updated on plan of care and expected duration. Pain jl7 level reassessed. Patient is alert, oriented x 3, equal unlabored respirations, skin warm/dry/pink. 10:26 Reassessment: Patient and/or family updated on plan of care and expected duration. Pain jl7 level reassessed. Patient is alert, oriented x 3, equal unlabored respirations, skin warm/dry/pink. Vital Signs: 08:05 BP 140 / 74; Pulse 87; Resp 20 S; Temp 99.6(TE); Pulse Ox 96% on R/A; Weight 136.08 kg aa5 (R); Height 5 ft. 9 in. (175.26 cm) (R); Pain 2/10; 09:50 BP 115 / 49; Pulse 84; Resp 18; Pulse Ox 99% on R/A; tw2 10:26 BP 122 / 60; Pulse 82; Resp 16 S; Pulse Ox 99% on R/A; jl7 14:33 BP 124 / 62; Pulse 79; Resp 17; Temp 99.4; Pulse Ox 99% on R/A; sg 08:05 Body Mass Index 44.30 (136.08 kg, 175.26 cm) aa5 ED Course: 07:59 Patient arrived in ED. mr 08:00 Out, [facility] is Private Physician. mr 08:04 Adrienne Menezes RN is Primary Nurse. jl7 08:04 Arm band placed on Patient placed in an exam room, on a stretcher. aa5 08:11 Perez Taveras MD is Attending Physician. kdr 08:15 Patient has correct armband on for positive identification. Bed in low position. Call jl7 light in reach. Side rails up X 1. Pulse ox on. NIBP on. 08:16 Triage completed. aa5 08:30 No provider procedures requiring assistance completed. sg 09:00 Inserted saline lock: 22 gauge in left antecubital area, using aseptic technique. Blood jl7 collected. 09:00 Initial lab(s) drawn, by me, sent to lab. First set of blood cultures drawn by me. jl7 09:08 Extremity Nonvascular Complete In Process Unspecified. EDMS 09:11 Ultrasound completed. Patient tolerated well. hr 09:19 X-ray completed. Portable x-ray completed in exam room. Patient tolerated procedure sw well. 09:21 Elbow Right 2 View In Process Unspecified. EDMS 13:39 Xenia Mota MD is Hospitalizing Provider. kdr 14:40 Patient admitted, IV remains in place. IV discontinued, intact, bleeding controlled, No jl7 redness/swelling at site. Pressure dressing applied, Pt's IV was causing pain when roller mechanic left the room with the pt to transport to the floor. IV was DC'd at this time. Administered Medications: 10:50 Drug: vancoMYCIN 1.5 grams Route: IVPB; Rate: calculated rate; Site: left antecubital; jl7 12:50 Follow up: Response: No adverse reaction; IV Status: Completed infusion jl7 Outcome: 13:41 Decision to Hospitalize by Provider. kdr 14:32 Admitted to Med/surg accompanied by tech, family with patient, via wheelchair, room sg 220, with chart, Report called to Andrés KABA 14:32 Condition: good 14:32 Instructed on the need for admit, medication usage, safety practices, Demonstrated understanding of instructions. 14:42 Patient left the ED. bd Signatures: Dispatcher [employer] EDMS Sherri Cardona Steven, RN RN sg Perez Taveras MD MD kdr Alecia Epstein Alisha Vasquez hr Raquel Armenta, RN RN aa5 Yuliana Dailey Tara, RN RN tw2 Adrienne Menezes RN RN jl7 Corrections: (The following items were deleted from the chart) 09:55 09:50 BP 140 / 74; Pulse 77bpm; Resp 18bpm; Pulse Ox 99% RA; tw2 tw2 18:24 14:34 Patient admitted, IV remains in place. intact, No redness/swelling at site. jl7
[2017-11-26] MEDS ORDERED: ACETAMINOPHEN 650MG/RECT SUPP PR PRN (14:50)
[2017-11-26] MEDS ORDERED: ONDANSETRON 4 MG/2 ML VIAL IV PRN (14:50)
[2017-11-26] MEDS: NA CHLORIDE 0.9% 1,000 ML IV SCH ×2 (15:34→22:32)
[2017-11-26] MEDS ORDERED: METHIMAZOLE 10 MG PO SCH (16:30)
[2017-11-26] MEDS: METHIMAZOLE 10 MG PO SCH ×3 (17:00→20:44)
[2017-11-26] MEDS: TRAMADOL HCL 50 MG TAB PO PRN ×2 (17:06→22:31)
[2017-11-26] MEDS: ATORVASTATIN 10 MG TAB PO SCH (20:43)
[2017-11-27 06:02] LABS: Absolute Lymphocytes (CBC) 2.8 K/uL (0.7-4.9); Absolute Monocytes 1.1 K/uL (0.1-1.3); Basophils % 0.2 % (0-1.3); Eosinophils % 2.5 % (0-4.4); Hematocrit 35.8 % (39.6-49.0); Lymphocytes % 22.7 % (15.3-44.8); MCH 28.7 pg (27.0-35.0); MCV 82.2 fL (80-100); Monocytes % 8.7 % (3.3-12.3); RBC Red Blood Cell Count 4.36 M/uL (4.33-5.43)
[2017-11-27 06:24] LABS: ALT/SGPT 22 U/L (12-78); AST/SGOT 15 U/L (15-37); Alkaline Phosphatase 75 U/L (45-117); BUN Blood Urea Nitrogen 8 mg/dL (7-18); Bicarbonate 26 mmol/L (21-32); Bilirubin Total 0.6 mg/dL (0.2-1.0); Glucose Level 101 mg/dL (74-106); Potassium 3.9 mmol/L (3.5-5.1); Protein, Total 6.8 g/dL (6.4-8.2); Sodium Level 141 mmol/L (136-145)
[2017-11-27] MEDS: PANTOPRAZOLE 40MG TABLET PO SCH (07:30)
[2017-11-27] MEDS ORDERED: HOME MED 1 EA UNK (Omeprazole [Prilosec] 40 MG) PO SCH (09:00)
[2017-11-27] MEDS: AMLODIPINE 5 MG TAB PO SCH (09:00)
[2017-11-27] MEDS: PROPRANOLOL HCL 60 MG SA CAP PO SCH (09:00)
[2017-11-27] MEDS ORDERED: HOME MED 1 EA UNK (Pravastatin Sodium [Pravastatin Sodium] 40 MG) PO SCH (09:00)
[2017-11-27] MEDS ORDERED: AMLODIPINE PO SCH (09:00)
[2017-11-27] MEDS: VALSARTAN 80 MG TAB PO SCH (09:00)
[2017-11-27] MEDS ORDERED: VALSARTAN PO SCH (09:00)
[2017-11-27] MEDS: METHIMAZOLE 10 MG PO SCH ×3 (09:08→23:53)
[2017-11-27] MEDS: NA CHLORIDE 0.9% 1,000 ML IV SCH (10:50)
[2017-11-27] MEDS: predniSONE 20 MG TAB PO SCH ×2 (11:25→21:09)
[2017-11-27] MEDS: SMZ./TMP. 800/160 MG TABLET PO SCH ×2 (11:25→21:09)
--- NOTE | 2017-11-27 14:38 | CON ---
Reason For Consultation: Right elbow pain. History Of Present Illness: Surjit is a 47-year-old male with past medical history, including hyper tension, hypothyroidism, who presented to the ER with a right elbow pain and swelling. The patient d enies any particular injury to his right elbow, but reports progressive pain and swelling. He report s history of similar episode in the past, where he was treated with steroids and antibiotics. He sta slime that he has been told in the past that he also may have gout. Denies any other musculoskeletal c omplaints at this time. Review of Systems: As above, otherwise negative. Past Medical History: Includes hypertension, hypothyroidism. Past Surgical History: Reviewed and noncontributory. Family History: Reviewed and noncontributory. Social History: Denies tobacco use. Denies alcohol use. Lives at home. Physical Examination: General: No apparent distress. HEENT: Normocephalic, atraumatic. Neck: Supple. Cardiovascular: Brisk cap refill to all digits. Chest: Nonlabored breathing. Abdomen: Nondistended. Psychiatric: Responsive to exam. Musculoskeletal: Right upper extremity does have some swelling over the posterior elbow with a boggy olecranon bursa consistent with bursitis. No significant erythema at this time. Range of motion fr om approximately 10 degrees of full extension to about 130 degrees with pain past those limits. No p ain with supination, pronation. Positive firing of EPL, FPL, intrinsics. No streaking erythema note d. Laboratory Data: White count 12.2, hemoglobin 12.5, hematocrit 35.8, platelets 278 with a normal dif ferential. Sodium 141, potassium 3.9, chloride 108, CO2 26, creatinine 0.7, glucose 101. X-rays: X-rays of the left elbow were negative for any fracture or dislocation. Assessment And Plan: Surjit is a 47-year-old male with left elbow pain and swelling consistent with an inflammatory olecranon bursitis. Based on examination, there is no significant erythema or signs of active infection. The patient reports history of gout, which makes his findings more consistent with an inflammatory type process. I recommend a trial of IV steroids with monitoring. If the patie nt's condition is improved, he may be discharged and follow up in my clinic as needed. DYLAN/TRISHA Voice ID: [id number] Report ID: [id number]
--- NOTE | 2017-11-27 15:11 | P.PN ---
Subjective Date of Service: 11/27/17 Primary Care Provider: Dr Ramirez Chief Complaint: Elbow swell Patient seen and examined at bedside with RN. Chart reviewed. Case discussed with orthopedics at this time. Patient had mild improvement in the swelling at this time. Overnight no complaints to offer. This morning has been doing well overall. Review of Systems 10-point ROS is otherwise unremarkable Physical Examination - Vital Signs Temperature: 98.9 F Blood Pressure: 122/65 Pulse: 77 Respirations: 18 Pulse Ox (%): 95 - Physical Exam General: Alert, In no apparent distress HEENT: Atraumatic, PERRLA, EOMI Neck: Supple, JVD not distended Respiratory: Clear to auscultation bilaterally, Normal air movement Cardiovascular: Regular rate/rhythm, Normal S1 S2 Gastrointestinal: Normal bowel sounds, No tenderness Musculoskeletal: Swelling, Erythema, Tenderness, Warmth Integumentary: No rashes Neurological: Normal speech, Normal tone, Normal affect Lymphatics: No axilla or inguinal lymphadenopathy - Studies Medications List Reviewed: Yes Assessment And Plan - Current Problems (Diagnosis) (1) Elbow swelling Onset Date: 11/27/17 Current Visit: Yes Status: Acute Plan: Right elbow swelling. -Switched to Bactrim and Steroids -orthopedic consulted. Appreciate Reccs -RICE, Steroids and PO abx. -no NSAIDs as patient does have a history of gastric ulcers. Qualifiers: Laterality: right Qualified Code(s): M25.421 - Effusion, right elbow (2) HTN (hypertension) Onset Date: 11/27/17 Current Visit: Yes Status: Chronic (3) Hyperthyroidism Onset Date: 11/27/17 Current Visit: Yes Status: Chronic Discharge Plan: Home Plan to discharge in: 24 Hours - Code Status/Comfort Care Code Status Assessed: Yes Critical Care: No
[2017-11-27] MEDS: ATORVASTATIN 10 MG TAB PO SCH (21:00)
[2017-11-28 04:53] LABS: Absolute Lymphocytes (CBC) 1.6 K/uL (0.7-4.9); Absolute Monocytes 0.5 K/uL (0.1-1.3); Absolute Neutrophil 11.2 K/uL (1.8-8.0); Basophils % 0.2 % (0-1.3); Eosinophils % 0.2 % (0-4.4); Hematocrit 37.4 % (39.6-49.0); Lymphocytes % 11.9 % (15.3-44.8); MCH 28.4 pg (27.0-35.0); MPV 7.2 fL (7.6-11.3); Monocytes % 3.6 % (3.3-12.3)
[2017-11-28 05:15] LABS: ALT/SGPT 24 U/L (12-78); AST/SGOT 16 U/L (15-37); Alkaline Phosphatase 78 U/L (45-117); BUN Blood Urea Nitrogen 11 mg/dL (7-18); Bicarbonate 27 mmol/L (21-32); Bilirubin Total 0.3 mg/dL (0.2-1.0); Glucose Level 138 mg/dL (74-106); Potassium 4.7 mmol/L (3.5-5.1); Protein, Total 7.3 g/dL (6.4-8.2); Sodium Level 139 mmol/L (136-145)
[2017-11-28] MEDS: PANTOPRAZOLE 40MG TABLET PO SCH (07:30)
[2017-11-28] MEDS: PROPRANOLOL HCL 60 MG SA CAP PO SCH (09:00)
[2017-11-28] MEDS: VALSARTAN 80 MG TAB PO SCH (09:00)
[2017-11-28] MEDS: AMLODIPINE 5 MG TAB PO SCH (09:00)
[2017-11-28] MEDS: predniSONE 20 MG TAB PO SCH (09:08)
[2017-11-28] MEDS: SMZ./TMP. 800/160 MG TABLET PO SCH (09:08)
[2017-11-28] MEDS: METHIMAZOLE 10 MG PO SCH (09:09)
--- NOTE | 2017-11-28 13:20 | P.DS ---
Admission Date: 11/26/17 Discharge Date: 11/28/17 Primary Care Provider: Dr Ramirez Disposition: ROUTINE DISCHARGE Discharge Condition: FAIR Reason for Admission: Elbow swell - Problems (1) Bursitis Current Visit: Yes Status: Acute Qualifiers: Bursitis location: elbow Elbow bursitis location: olecranon bursitis Laterality: right Qualified Code(s): M70.21 - Olecranon bursitis, right elbow (2) HTN (hypertension) Onset Date: 11/27/17 Current Visit: Yes Status: Chronic Brief History of Present Illness: This is a 47-year-old male with significant past medical history of hypertension and hyperthyroidism recently diagnosed who presented to the ED complaining of having some elbow swelling. Patient stated that his right elbow study getting swollen for past 2-3 days and has got progressively worse. Patient stated that initially was able to move his elbow joint however now he is not able to move his elbow joint and has been having some throbbing pain. Pain is 8/10 in nature. 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 Patient stated that he had similar episode happened to him in the past 12 years ago where he was given some steroids along with antibiotics for about 30 days and he had resolution of his symptoms at this time. Hospital Course: He was admitted for bursitis. He was treated with abx and steroid with significant improvement. Vital Signs/Physical Exam: Temp Pulse Resp BP Pulse Ox 98.4 F 81 20 142/66 H 97 11/28/17 12:00 11/28/17 12:00 11/28/17 12:00 11/28/17 12:00 11/28/17 12:00 General: Alert, In no apparent distress HEENT: Atraumatic, PERRLA, EOMI Neck: Supple, JVD not distended Respiratory: Clear to auscultation bilaterally, Normal air movement Cardiovascular: Regular rate/rhythm, Normal S1 S2 Gastrointestinal: Normal bowel sounds, No tenderness Musculoskeletal: No tenderness Integumentary: No rashes Neurological: Normal speech, Normal tone, Normal affect Lymphatics: No axilla or inguinal lymphadenopathy Laboratory Data at Discharge: WBC 13.3 K/uL (4.3-10.9) H 11/28/17 04:34 Hgb 12.8 g/dL (13.6-17.9) L 11/28/17 04:34 Hct 37.4 % (39.6-49.0) L 11/28/17 04:34 Plt Count 276 K/uL (152-406) 11/28/17 04:34 Sodium 139 mmol/L (136-145) 11/28/17 04:34 Potassium 4.7 mmol/L (3.5-5.1) 11/28/17 04:34 BUN 11 mg/dL (7-18) 11/28/17 04:34 Creatinine 0.80 mg/dL (0.55-1.3) 11/28/17 04:34 Glucose 138 mg/dL (74-106) H 11/28/17 04:34 Total Bilirubin 0.3 mg/dL (0.2-1.0) 11/28/17 04:34 AST 16 U/L (15-37) 11/28/17 04:34 ALT 24 U/L (12-78) 11/28/17 04:34 Alkaline Phosphatase 78 U/L (45-117) 11/28/17 04:34 Home Medications: Amlodipine/Valsartan [Amlodipine-Valsartan 5-320 mg] 1 each PO DAILY 11/26/17 Lamotrigine [Lamotrigine ER] 200 mg PO DAILY 11/26/17 Methimazole [Tapazole] 10 mg PO Q8H 11/26/17 Omeprazole [Prilosec] 40 mg PO DAILY 11/26/17 Pravastatin Sodium 40 mg PO DAILY 11/26/17 Propranolol [Inderal LA*] 60 mg PO DAILY 11/26/17 Diet: Regular Activity: Ad richelle Time spent managing pt's care (in minutes): 15
== END 2017-11-28 15:20 | disposition home or self-care (01) ==
LOC: ER 07:54 → ERHOLD 10:09 → 2ND 14:33
PROVIDERS: ADMIT Family Medicine; ATTEND Internal Medicine Hematology & Oncology
DX: M70.22 Olecranon bursitis, left elbow (principal); I10 Essential (primary) hypertension; K21.9 Gastro-esophageal reflux disease without esophagitis; E05.90 Thyrotoxicosis, unspecified without thyrotoxic crisis or storm
CPT/HCPCS: 36415; 76881; 80048; 80053; 85025; 87040; 96365; 96366; 99285; G0378; J7030; J7512

== ENCOUNTER → 2021-07-03 | Day surgery (SDC) | payer OTHER ==
--- NOTE | 2021-07-03 13:15 | RAD REPORT ---
EXAM DESCRIPTION: US - Guided FNA Non Breast - 07/03/2021 9:02 am CLINICAL HISTORY: E04.2 COMPARISON: May 2021 TECHNIQUE: Risks, benefits and alternatives of procedure explained to the patient and informed conse nt obtained. Skin and subcutaneous tissues anesthetized with lidocaine. Under sonographic guidance, five 25 gauge needle passes were obtained into the dominant nodule within the left lobe of the thyroid gland. Specimens given to pathology. Patient experienced no immediate complication The patient has multiple benign-appearing nodules within the right lobe of the thyroid gland. Due to the deep location of the nodules and the high likelihood of benignity fine-needle aspiration on the r ight side was not performed. Followup ultrasound 1 year recommended to assess stability IMPRESSION: Fine-needle aspiration of the 3.4 centimeter nodule within left lobe of thyroid gland
== END ==
LOC: FNA 09:00
PROVIDERS: ATTEND Internal Medicine Endocrinology, Diabetes & Metabolism
PROC: 0GJK3ZZ Inspection of Thyroid Gland, Percutaneous Approach (ICD-10-PCS; principal; 2021-07-03)
DX: E04.2 Nontoxic multinodular goiter (principal)
CPT/HCPCS: 88162